=== PATIENT | female | born 1975 | race Two or more races ===

== ENCOUNTER → 2019-03-24 | Outpatient (CLI) | payer BC ==
--- NOTE | 2019-03-24 15:11 | EKG ---
[facility] [address] [place] [address] Test Date: 2019-03-24 Test Time: 15:09:00 Pat Name: LIZANDRO GREENWOOD Department: Room: Gender: F Corporate Claims Examiner: : 1975 Requested By: LAVINIA SHETH Order Number: [id number] Reading MD: Naun Killian Measurements Intervals Drasco Rate: 68 P: 38 IN: 178 QRS: 25 QRSD: 84 T: 17 QT: 364 QTc: 391 Interpretive Statements SINUS RHYTHM Electronically Signed On 03-26-2019 10:16:26 STAFF REGISTERED NURSE by Naun Killian
[2019-03-24 15:17] LABS: BASO % 0 % (0-3); EOS # 0.1 x10^3/uL (0.0-0.7); EOS % 1 % (0-3); LYMPH # 2.9 x10^3/uL (1.0-4.8); LYMPH % 22 % (24-48); MEAN CORPUSCULAR HEMOGLOBIN 23 pg (25-35); MEAN CORPUSCULAR HGB CONC 32 g/dL (31-37); MEAN CORPUSCULAR VOLUME 72 fL (79-100); MONO # 0.5 x10^3/uL (0.0-1.1); MONO % 4 % (0-9); NEUT % 74 % (31-73); PLATELET COUNT 339 x10^3/uL (140-400); RED BLOOD COUNT 4.84 x10^6/uL (3.50-5.40); RED CELL DISTRIBUTION WIDTH 18.5 % (11.5-14.5); WHITE BLOOD COUNT 13.6 x10^3/uL (4.0-11.0)
[2019-03-24 15:50] LABS: ALBUMIN 3.6 g/dL (3.4-5.0); ALBUMIN/GLOBULIN RATIO 0.9 (1.0-1.7); CREATININE 0.6 mg/dL (0.6-1.0); GFR 107.6; POTASSIUM 3.5 mmol/L (3.5-5.1); TOTAL BILIRUBIN 0.2 mg/dL (0.2-1.0); TOTAL PROTEIN 7.7 g/dL (6.4-8.2)
--- NOTE | 2019-03-24 15:58 | RAD ---
EXAM: Chest, 2 views. HISTORY: Hysterectomy. Preoperative evaluation. COMPARISON: None. FINDINGS: 2 views of the chest are obtained. There is no infiltrate, pleural effusion or pneumothorax. The heart is normal in size. IMPRESSION: No acute pulmonary finding. Electronically signed by: Samia Riley MD (03/24/2019 3:55 PM) [facility]
[2019-03-24 15:59] LABS: BILIRUBIN,URINE NEGATIVE (NEG); CLARITY,URINE CLEAR; COLOR,URINE YELLOW; NITRITE,URINE NEGATIVE (NEG); PH,URINE 6.5; PROTEIN,URINE NEGATIVE (NEG-TRACE); UROBILINOGEN,URINE 0.2 mg/dL (0.2 mg/dL)
[2019-03-24 16:08] LABS: SQUAMOUS EPITHELIAL CELL,UR MOD /LPF
[2019-03-24 16:10] LABS: BACTERIA,URINE FEW /HPF (0-FEW)
[2019-03-24 16:36] LABS: PLT ESTIMATE ADEQUATE (ADEQUATE)
[2019-03-24 16:37] LABS: HYPOCHROMIA SLIGHT; MICROCYTOSIS SLIGHT
== END ==
LOC: SURGPAT 14:05
PROVIDERS: ATTEND Obstetrics & Gynecology
DX: Z01.818 Encounter for other preprocedural examination (principal); D64.9 Anemia, unspecified
CPT/HCPCS: 36415; 71046; 80053; 81001; 85025; 93005

== ENCOUNTER 2019-04-01 06:55 | Observation (INO) | payer BC ==
[~2019-04-01] VITALS: Ht 157.5 cm; Wt 90.7 kg
[2019-04-01] VITALS (7 sets, daily range): BP systolic 106–142; BP diastolic 48–79
[2019-04-01] MEDS ORDERED: PROPOFOL 20 ML IV ONE (06:56)
[2019-04-01] MEDS ORDERED: fentaNYL PF VIAL 100 MCG/2 ML VIAL ONE ×2 (06:56→11:06)
[2019-04-01] MEDS ORDERED: MIDAZOLAM HCL/PF 2 MG/2 ML VIAL. ONE (06:56)
[2019-04-01] MEDS ORDERED: LIDOCAINE 2% PF 5 ML VIAL. ONE (06:56)
[2019-04-01] MEDS ORDERED: DEXAMETHASONE SOD PHOS 4 MG/ML VIAL ONE (06:56)
[2019-04-01] MEDS ORDERED: ROCURONIUM 50 MG/5 ML VIAL. ONE (06:56)
[2019-04-01] MEDS ORDERED: ONDANSETRON PF 4 MG/2 ML VIAL. ONE (06:56)
[2019-04-01] MEDS ORDERED: ceFAZolin 2GM PREMIX 2 GM/50 ML BAG IV ONE (07:00)
[2019-04-01] MEDS ORDERED: MORPHINE SULFATE 2 MG/ML VIAL. IV PRN (07:00)
[2019-04-01] MEDS ORDERED: ONDANSETRON PF 4 MG/2 ML VIAL. IV PRN ×2 (07:00→11:45)
[2019-04-01] MEDS ORDERED: PROCHLORPERAZINE 10 MG/2 ML VIAL. IV PRN (07:00)
[2019-04-01] MEDS ORDERED: IV RINGERS,LACTATED 1000ML 1,000 ML IV SCH (07:00)
[2019-04-01] MEDS ORDERED: fentaNYL PF VIAL 100 MCG/2 ML VIAL IV PRN ×2 (07:00)
[2019-04-01] MEDS ORDERED: BUPIVACAINE-EPI 0.25%-1:200000 MPF 30 ML VIAL. INJ ONE (07:45)
[2019-04-01] MEDS ORDERED: ESTROGENS, CONJ VAGINAL CREAM 30GM TUBE. ONE (07:50)
[2019-04-01] MEDS ORDERED: INDIGOTINDISULFONATE SODIUM 40 MG/5 ML AMPUL. ONE (07:50)
[2019-04-01] MEDS ORDERED: FAMOTIDINE 20 MG/2 ML VIAL ONE (08:46)
[2019-04-01] MEDS ORDERED: DESFLURANE > 120 MINUTES IH ONE (10:11)
[2019-04-01] MEDS ORDERED: GLYCOPYRROLATE 1 MG/5 ML VIAL. ONE (10:41)
[2019-04-01] MEDS ORDERED: NEOSTIGMINE METHYLSULFATE 5 MG/5 ML SYRINGE. ONE (10:41)
--- NOTE | 2019-04-01 11:38 | PDOC ---
BRIEF OPERATIVE NOTE Date: Apr 01, 2019 Pre-Op Diagnosis menorrhagia, anemia, dysmenorrhea, enlarged uterus Post-Op Diagnosis same Procedure Performed LAVH/bilateral salpingectomy Surgeon Dr. Mera Franco Psychological Operations Officer Dante Harrison [facility] Anesthesiologist Dr. Quinteros Anesthesia Type: General Blood Loss 500cc IV Fluid 1200cc Urine Output 300cc via burciaga Specimens Obtained cervix, uterus morcellated to get out, and bilateral tubes Findings very enlarged RV uterus, functional left ovarian cyst popped with manipulatin of it, normal bilateral tubes, no significant adhesive disease Complications none Operative Note [id number] MERA FRANCO MD Apr 01, 2019 11:38
[2019-04-01] MEDS ORDERED: MAGNESIUM HYDROXIDE 2,400 MG/30 ML ORAL.SUSP. PO PRN (11:45)
[2019-04-01] MEDS ORDERED: NALOXONE 0.4 MG/ML VIAL. IV PRN (11:45)
[2019-04-01] MEDS ORDERED: SIMETHICONE 80 MG TAB.CHEW PO PRN (11:45)
[2019-04-01] MEDS ORDERED: LACTULOSE 20 GM/30 ML SOLUTION. PO PRN (11:45)
[2019-04-01] MEDS ORDERED: oxyCODONE/APAP 5/325 1 TAB TABLET PO PRN (11:45)
[2019-04-01] MEDS ORDERED: diphenhydrAMINE 50 MG/ML VIAL IV PRN (11:45)
[2019-04-01] MEDS ORDERED: diphenhydrAMINE HCL 25 MG CAPSULE PO PRN (11:45)
[2019-04-01] MEDS ORDERED: 0.9 % SODIUM CHLORIDE 10 ML DISP.SYRIN. IV PRN (11:45)
[2019-04-01] MEDS ORDERED: CALCIUM CARBONATE 500 MG TAB.CHEW PO PRN (11:45)
[2019-04-01] MEDS ORDERED: ZOLPIDEM 5 MG TABLET. PO PRN (11:45)
[2019-04-01] MEDS ORDERED: MAG HYDROX/ALUMINUM HYD/SIMETH 30 ML ORAL.SUSP PO PRN (11:45)
[2019-04-01] MEDS: MORPHINE SULFATE 2 MG/ML VIAL. IV PRN ×2 (11:56→19:56)
[2019-04-01] MEDS: HYDROmorphone 2 MG/ML VIAL IV PRN ×2 (12:13→12:19)
[2019-04-01] MEDS: HYDROcodone/APAP 5/325MG 1 TAB TABLET PO PRN ×2 (16:56→21:02)
--- NOTE | 2019-04-01 21:30 | NUR ---
Came into patient room after emergency call light was going off. Pt. was up walking to the bathroom with her . Pt. was hyperventilating and stated that she was in pain. This nurse and labor nurses helped pt. back to bed at this time. Pulse Ox applied and pulse rate was in the 140s, O2 sats were WNL. Nursery nurse who speaks Kuwaiti was called and came into room and talked to patient and encouraged patient to breathe and to relax. Pt. RR went down and pulse came down to the 90s within the next few minutes. Pt. c/o to the nursery nurse that she had pain on her left side, but that the ice helped. Told pt. to call when she wanted to try and get up to the bathroom next. Dr. Franco was called at 2150 and told about patient condition, orders received that pt. can have a one time dose of Ativan or Benadryl as needed to help her sleep. Pt. updated with plan from Dr. Franco.
--- NOTE | 2019-04-01 21:47 | OP ---
DATE OF SURGERY: 04/01/2019 PREOPERATIVE DIAGNOSES: Menorrhagia, dysmenorrhea, anemia, enlarged uterus. POSTOPERATIVE DIAGNOSES: Menorrhagia, dysmenorrhea, anemia, enlarged uterus. PROCEDURE: Laparoscopic-assisted vaginal hysterectomy, bilateral salpingectomy. SURGEON: Lavinia Franco MD ASSOCIATE PROFESSOR COMPUTER SCIENCE: Dante Harrison, rina FA. ANESTHESIOLOGIST: Gildardo Quinteros MD ANESTHESIA: General. ESTIMATED BLOOD LOSS: 500 mL. URINE OUTPUT: 300 mL clear during the case via Talavera catheter. INTRAVENOUS FLUIDS: 1200 mL of Crystalloid. SPECIMENS: Cervix, the uterus was morcellated in pieces to get it out and bilateral tubes. FINDINGS: A very enlarged retroverted uterus, a functional left ovarian cyst that was popped with manipulation of it. Normal bilateral tubes. No significant adhesive disease. Normal appearing appendix was visualized as well. COMPLICATIONS: None. DESCRIPTION OF PROCEDURE: This patient was taken to the operating room where general anesthesia was placed. The patient was placed in dorsal lithotomy position in Greg stirrups. The patient's abdomen and vagina were both prepped and draped in the normal sterile fashion and a Talavera catheter had been inserted under sterile technique. Upon my arrival, a timeout was performed where it was assured, she got her antibiotics and everyone agreed on the patient. A bivalve speculum was then placed in the patient's vagina. Single-tooth tenaculum was used to grasp the anterior lip of the cervix. A 10 mL of 0.25% Marcaine with epinephrine was used to circumferentially inject around the cervix for both hemodissection and hemostatic purposes later. The Valtchev uterine manipulator was placed through the endocervical os, locked on the single tooth tenaculum and the bivalve speculum was then removed. Top gloves were discarded and changed. At this point, a supraumbilical skin incision was made. I went a couple of centimeters above the umbilicus as she had a uterus that was midway between the pubic bone and the umbilicus, and I wanted to have adequate visualization with the scope around it. So, I went a couple above, injected, made a small incision, used a Joyce to dissect through the subcuticular layer to the fascia. The 5 mm Visiport was used to directly enter the abdominal cavity. Opening patient pressure was 3-4 mmHg. Carbon dioxide gas was used to then appropriately insufflate the abdominal cavity to maintain a pressure of 15 mmHg. The patient was placed in Trendelenburg position. At this point, right and left lower quadrant ports were done. First transilluminating the abdominal wall, finding an area clear of any vasculature, injecting it, making an incision and placing the trocar in under direct visualization. This was done on both sides. Also, both trocars were filled with 4-5 mL of air in the trocar balloon cuff. At this point, the camera was moved laterally to look at the umbilical port. It was clear and 4-5 mL of air was placed in it as well. At this point, the camera was moved back to the midline and the procedure was begun. First elevating the left tube and ovary, there was a small functional cyst on the left that popped with manipulation of the ovary, elevating the tube, doing a salpingectomy, crossing the left uterine ovarian pedicle and then the left round ligament, cauterizing and cutting with the LigaSure the whole way through. This was done exactly the same on the right, elevating the right tube and ovary, going above the ovary, below the tube, doing a salpingectomy, crossing the right uterine ovarian pedicle as well as the right round ligament. At this point, the bladder flap was created sharply, elevating it anteriorly and using the monopolar hook to incise it and pushing the uterus cephalad and then pulling gentle traction down and making that bladder flap and pulling it down. The uterine vessels were obtained then on both sides and on the patient's left side, crossing contralaterally, hugging the cervix, staying vertical right on the uterus and cervix, going down to the uterosacral and then staying inside that pedicle on the right side where the uterine vessels were obtained going down correction down the cervix as well. The uterus was completely free and blanched at this point, although it was very large and difficult to manipulate, but everything was free and there was no active bleeding at this point. All instruments were removed from the abdomen and attention was turned vaginally. At this point, the single tooth and Valtchev were removed. A weighted speculum was placed in the patient's vagina. A scalpel was used to make a circumferential incision. This was very difficult as she had a very large cervix. It took up 3/4 of the vagina itself, so moving it around to manipulate it to see the cut and being very careful not to cut vagina. Then, the posterior cul-de-sac was actually easier entered, which could be seen bulging. The curved Dorsey's were used to enter the posterior cul-de-sac sharply and a #0 Vicryl stitch was used to secure the posterior peritoneum to the vaginal cuff. It was tagged with a curved Joyce clamp and the needle was cut and passed off. The short weighted vaginal speculum was removed and replaced with the long Ron speculum in the posterior cul-de-sac. At this point, attention was turned to work on the bladder. I could get in on that left side where we got down lower and I could go up on that left side, very easily and then I had to take it around anteriorly from there and make sure I was in and then cut on the right side that was more difficult to see with her cervix. Once I knew I was in and pushed it up and make sure the bladder was completely up and that we were in that anterior cul-de-sac and putting a Suleiman in there, but once I knew the left side was giving and I was in the right plane, I used a Ray-Steffi to push up on that side, entered on this side and then I was able to use digitally bluntly get my finger in and around, and make that bladder flap and put the Dacono in. Once this was done, I was able to take a curved Heaneys x 2 on the patient's left uterosacral ligament where they were doubly clamped with curved Heaneys, cut with curved Dorsey scissors and suture ligated x 2 with 0 Vicryl. Second one was taken through the vaginal cuff, securing uterosacral ligament to the vaginal cuff. Then, on the right side, I did the same thing after making sure the bladder was up, taking it up, working on it. It just took some time to get there. She had more thicker tissue on that right side and the cervix was made it difficult to see, but once we got the bladder up and I could take bite with the curved Inocente's, everything kind of released and I was able to continue. I went back to the patient's left side, I was able to put a mixture around the remaining pedicle and the vaginal LigaSure was used to cauterize and cut the remaining pedicle. I was able to get my finger up and around and the entire left side was free at this point. I did take the mixture around the remaining pedicle on the right side. It was a larger pedicle, but I was able to get it around and hold it there and opened it up while I used the vaginal LigaSure to cauterize and cut the remaining pedicle on the right side as well. Once this was done, the uterus was free and it did start to give a little bit more vaginally. I then had them check the urine. We had over 200 mL, clear via Talavera catheter. I just wanted to make sure because pulling down the large uterus and manipulating it sometimes causes a little bit of pressure on the bladder and a tiny bit of blood. So, I wanted to make sure we were completely clear after all the cutting and manipulation of the uterus and cervix. So, at this point morcellation was begun. A scalpel was used to make incision up higher than the cervix and it kind of curve in. I was able to place the double tooth tenaculum on the remaining and start to cut on it as well and turned the uterus and get one of the cornua out. Once I was able to cut there, the rest remained or caved and it delivered. It was a very, very large and wide and bulbous fundus with both tubes attached that was delivered. Once this was done, the anterior bladder peritoneum was grasped with a long Allis. Sponge stick was used to examine the pedicles. The right pedicle had fallen off during the manipulation and pulling it out. Also, the posterior peritoneum pushed up and was bleeding, so I did put a few interrupted sutures pulling that back down to the vaginal cuff and making sure there was no bleeding. She had a tiny pumper on the left vaginal cuff that was a burlisher clamp that and I was able to put a 2-0 Vicryl suture around it with excellent results. Once hemostasis was assured vaginally, a full length 2-0 Vicryl was used to take it through the anterior bladder peritoneum, left uterosacral ligament, posterior peritoneum and right uterosacral ligament, thus closing the peritoneum in a pursestring like fashion. While we were closing the cuff, all sponge, lap and needle counts were correct x 2 by OR personnel. The cuff was closed in an anterior to posterior running locked fashion with a full length 2-0 Vicryl and it could even make it all the way down. So I took a second one, tied it to that and then finished it and tied it to that posterior cuff tag. I put an interrupted stitch in the middle just for hemostasis and making sure that it had good strength and integrity. Once did and that was assured, all instruments were removed from the vagina and like I said, have been corrected by OR personnel and counted x 2. Sponge stick was used to examine the vaginal cuff and it was hemostatic, so everything was removed. All gloves were discarded and changed for a second look from above. The patient was placed back in Trendelenburg. Gas was reinsufflated. Any clots were cleared from the cul-de-sac, but there was no active bleeding. Copious irrigation revealed hemostasis. The Tisseel did not pumped right, it just kind of blurred out on the left side. For some reason, it did not spray like it should have. So, I just got Alejandra and placed it all over the cuff and both pedicles. The ovaries looked good, the vaginal cuff looked good. I placed the Alejandra. It stayed white and powdery with no bleeding whatsoever at all. The right and left pericolic gutters were clear, everything looked good. Again, the visualization of the appendix and the liver edge were normal. Once this was all done, the gas was released from the right and left lower quadrant ports. These were removed under direct visualization. The cuff remained hemostatic as I looked at it again and the air was removed from the trocar and the umbilical port. Then, gas was released from this and then it was removed as well. All 3 port sites were closed with 4-0 nylon at the skin and the patient was awakened from anesthesia and is currently being brought to recovery room in stable condition. LAVINIA FRANCO MD DR: NATA/lucy JOB#: [id number] / [id number]
[2019-04-02 00:55] VITALS: BP 114/50
[2019-04-02 04:20] VITALS: BP 111/64
[2019-04-02 06:42] LABS: CREATININE 0.6 mg/dL (0.6-1.0); GFR 107.6; POTASSIUM 4.3 mmol/L (3.5-5.1)
--- NOTE | 2019-04-02 08:44 | PDOC ---
SURGICAL PROGRESS NOTE Subjective Doing well without complaints. Scant VB. Pain mild, ambulating well. Tolerating PO without problems. Voiding without catheter. Vital Signs Vital Signs Date Time Temp Pulse Resp B/P (MAP) Pulse Ox O2 Delivery O2 Flow Rate FiO2 04/02/19 08:10 Room Air 04/02/19 04:20 98.2 80 18 111/64 (80) 98 98.2 04/01/19 15:20 95.0 I&O Intake and Output 04/02/19 07:00 Intake Total 2510 ml Output Total 1204 ml Balance 1306 ml Intake Oral 1160 ml IV Total 1350 ml Output Urine Total 700 ml Stool Total 4 ml Estimated Blood Loss 500 ml PATIENT HAS A MAY: No General: Alert, Oriented X3, Cooperative, No acute distress HEENT: Atraumatic Heart: Regular rate Abdomen: Soft, No tenderness, No masses, Other (all port sites c/d/i) Extremities: No clubbing, No cyanosis, No edema, No tenderness/swelling Skin: No rashes, No breakdown Neuro: Normal speech Psych/Mental Status: Mental status NL, Mood NL Labs Laboratory Tests Test 04/01/19 07:14 04/01/19 18:20 04/02/19 04:16 Bedside Urine HCG, Qualitative Hcg negative (Negative) Hemoglobin 9.4 g/dL (12.0-15.5) Hematocrit 26.0 % (36.0-47.0) Sodium Level 140 mmol/L (136-145) Potassium Level 4.3 mmol/L (3.5-5.1) Chloride Level 105 mmol/L (98-107) Carbon Dioxide Level 25 mmol/L (21-32) Anion Gap 10 (6-14) Blood Urea Nitrogen 10 mg/dL (7-20) Creatinine 0.6 mg/dL (0.6-1.0) Estimated GFR (Cockcroft-Gault) 107.6 Glucose Level 103 mg/dL (70-99) Calcium Level 8.0 mg/dL (8.5-10.1) Laboratory Tests Test 04/01/19 18:20 04/02/19 04:16 Hemoglobin 9.4 g/dL (12.0-15.5) Hematocrit 26.0 % (36.0-47.0) Sodium Level 140 mmol/L (136-145) Potassium Level 4.3 mmol/L (3.5-5.1) Chloride Level 105 mmol/L (98-107) Carbon Dioxide Level 25 mmol/L (21-32) Anion Gap 10 (6-14) Blood Urea Nitrogen 10 mg/dL (7-20) Creatinine 0.6 mg/dL (0.6-1.0) Estimated GFR (Cockcroft-Gault) 107.6 Glucose Level 103 mg/dL (70-99) Calcium Level 8.0 mg/dL (8.5-10.1) I have reviewed the following labs, vitals, nursing Cardiovascular: No pertinent hx GI: No pertinent hx Heme/Onc: Anemia NOS Psych: No pertinent hx Problem List anemia, enlarged uterus, menorrhagia Assessment/Plan POD#1 s/p LAVH/bilateral salpingectomy routine po care d/c to home later today NPV x 6 weeks light/limited activity x [address] while on narcotic pain meds already has hydrocodone script at home filled anemia--iron bid keep scheduled follow up with me in the office in one week call or return sooner for any other questions or concerns not limited to but inc luding pain unrelieved with pain meds, increased or unexplained vaginal bleeding or T>100.4 LAVINIA SHETH MD Apr 02, 2019 08:44
--- NOTE | 2019-04-02 08:51 | PDOC3 ---
Discharge Summary Visit Information Date of Admission: Apr 01, 2019 Date of Discharge: Apr 02, 2019 Final Diagnosis anemia, enlarged uterus, menorrhagia Brief Hospital Course Allergies Allergies Coded Allergies Type Severity Reaction Last Updated Verified No Known Drug Allergies 03/24/19 No Vital Signs Vital Signs Date Time Temp Pulse Resp B/P (MAP) Pulse Ox O2 Delivery O2 Flow Rate FiO2 04/02/19 08:10 Room Air 04/02/19 04:20 98.2 80 18 111/64 (80) 98 98.2 04/01/19 15:20 95.0 Lab Results Laboratory Tests Test 04/01/19 07:14 04/01/19 18:20 04/02/19 04:16 Bedside Urine HCG, Qualitative Hcg negative (Negative) Hemoglobin 9.4 g/dL (12.0-15.5) Hematocrit 26.0 % (36.0-47.0) Sodium Level 140 mmol/L (136-145) Potassium Level 4.3 mmol/L (3.5-5.1) Chloride Level 105 mmol/L (98-107) Carbon Dioxide Level 25 mmol/L (21-32) Anion Gap 10 (6-14) Blood Urea Nitrogen 10 mg/dL (7-20) Creatinine 0.6 mg/dL (0.6-1.0) Estimated GFR (Cockcroft-Gault) 107.6 Glucose Level 103 mg/dL (70-99) Calcium Level 8.0 mg/dL (8.5-10.1) Laboratory Tests Test 04/01/19 18:20 04/02/19 04:16 Hemoglobin 9.4 g/dL (12.0-15.5) Hematocrit 26.0 % (36.0-47.0) Sodium Level 140 mmol/L (136-145) Potassium Level 4.3 mmol/L (3.5-5.1) Chloride Level 105 mmol/L (98-107) Carbon Dioxide Level 25 mmol/L (21-32) Anion Gap 10 (6-14) Blood Urea Nitrogen 10 mg/dL (7-20) Creatinine 0.6 mg/dL (0.6-1.0) Estimated GFR (Cockcroft-Gault) 107.6 Glucose Level 103 mg/dL (70-99) Calcium Level 8.0 mg/dL (8.5-10.1) Brief Hospital Course Ms. Orozco is a 44 old female who presented with menorrhagia and enlarged uterus. She underwent an LAVH/bilateral salpingectomy. She has had an unremarkable postoperative course. She is voiding without catheter, tolerating PO, ambulating well. She is anemic, but came in anemic but started that way and is stable postoperatively. Assessment Assessment POD#1 s/p LAVH/bilateral salpingectomy routine po care d/c to home later today NPV x 6 weeks light/limited activity x [address] while on narcotic pain meds already has hydrocodone script at home filled anemia--iron bid keep scheduled follow up with me in the office in one week call or return sooner for any other questions or concerns not limited to but including pain unrelieved with pain meds, increased or unexplained vaginal bleeding or T>100.4 Discharge Information Condition at Discharge: Stable Follow Up: Weeks Disposition/Orders: D/C to Home Scheduled Info (No Known Medications Prior To Admisstion) Each, 1 EACH 1X for NONE, (Reported) Entered as Reported by: GUERA ANDRADE on 03/24/19 0066 Patient Instructions Patient Instructions POD#1 s/p LAVH/bilateral salpingectomy routine po care d/c to home later today NPV x 6 weeks light/limited activity x [address] while on narcotic pain meds already has hydrocodone script at home filled anemia--iron bid keep scheduled follow up with me in the office in one week call or return sooner for any other questions or concerns not limited to but including pain unrelieved with pain meds, increased or unexplained vaginal bleeding or T>100.4 Hemodynamically unstable?: No Operative site or wounds?: Yes Poss blood loss?: Yes Persistent Pain & Nausea?: No Poss Infection?: No LAVINIA SHETH MD Apr 02, 2019 08:51
[2019-04-02] MEDS ORDERED: IBUPROFEN 200 MG TABLET. PO PRN (09:00)
[2019-04-02] MEDS ORDERED: INFLUENZA VAX SCREEN BY RX. MC PRN (09:30)
[2019-04-02] MEDS ORDERED: FLU VAX QS 2019-20 (36MOS+)/PF 0.5 ML SYRINGE. VAX IM ONE (10:00)
[2019-04-02 11:57] VITALS: BP 125/69
--- NOTE | 2019-04-02 12:15 | NUR ---
Discharge and follow up instructions reviewed and given to pt. Pt and family denied any questions prior to D/C. Pt taken out of the hospital per w/c and helped into the car with her family.
--- NOTE | 2019-04-06 10:07 | PATHOLOGY ---
[facility] Accession Number: [id number] . 01 Material submitted: . uterus - UTERUS, CERVIX, BILATERAL FALLOPIAN TUBES . 01 Clinical history: . Menorrhagia, dysmenorrhea . 02 Diagnosis: Uterus and bilateral fallopian tubes, laparoscopic assisted vaginal hysterectomy with bilateral salpingectomy: - Adenomyosis, uterine corpus, with myometrial hypertrophy (uterine weight 411 grams). - Mild chronic cervicitis with focal squamous metaplasia and hypercornification. - Proliferative endometrium with focal recent stromal hemorrhage. - Status post bilateral tubal ligation with mild hydrosalpinx proximal to ligation. - Paratubal cyst, side indeterminate. (JPM:jocy; 04/05/2019) S 04/05/2019 1501 Local . 02 Comment: There is no atypia or evidence of malignancy. . 02 Electronically signed: . Marco Antonio Brady MD, Pathologist NPI- [id number] . 01 Gross description: . The specimen is received in formalin, labeled "Orozco, Kassidy, uterus cervix bilateral fallopian tubes" and consists of a uterine corpus and the separately received lower uterine segment with attached cervix weighing 411 g and measuring 16.0 x 10.8 x 7.5 cm. Attached are 2 purple mendoza fimbriated fallopian tubes which are unable to be oriented measuring 6.4 cm in length and up to 0.9 cm in diameter and 8.0 cm in length and up to 1.0 cm in diameter. Both tubes are status post tubal ligation. The uterine serosa is pink-mas smooth shiny with focal hemorrhage. The approximate 2.5 cm cervical os is surrounded by ragged pink-mas mucosa. The lower uterine segment with cervix is opened revealing a pink-mas corrugated endocervical canal measuring 7.0 cm in length and a short segment of lower endometrial cavity measuring 2.6 cm in length and 2.0 cm in width. The uterine fundus is bivalved revealing a partial endometrial cavity measuring 4.3 cm in length and 4.5 cm in width which is lined by a dark purple red to pink endometrium measuring up to 0.4 cm. The myometrium is pink-mas measuring up to 4.2 cm with adenomyosis and no nodules. . Both the right and left fimbriated fallopian tubes are pink-purple and congested with a dilated lumen proximal the tubal ligation and a well-defined pinpoint lumen distal the ligation. Both tubes have paratubal cysts measuring up to 0.9 cm. Window Systems Administrator sections are submitted as follows: . A1: Anterior cervix A2: Posterior cervix A3-A4: Opposing endomyometrium A5: One fallopian tube A6: One fallopian tube (SDY; 04/02/2019) SYU/SYU 04/02/2019 1249 Local . 02 Pathologist provided ICD-10: N80.0, N72, N83.8 . 02 CPT . 848558 Specimen Comment: A courtesy copy of this report has been sent to [phone] Specimen Comment: Report sent to Performed at: 01 [facility] [address], [place], [place] [id number] MD Bjorn Harding MD Phone: [phone] Performed at: 02 [facility] [address], [place] [id number] MD Marco Antonio Brady MD Phone: [phone]
== END 2019-04-02 12:15 | disposition home or self-care (01) ==
LOC: SURG 06:55 → 3 NORTH 11:48
PROVIDERS: ADMIT Obstetrics & Gynecology; ATTEND Obstetrics & Gynecology
DX: N92.0 Excessive and frequent menstruation with regular cycle (principal); N94.6 Dysmenorrhea, unspecified; D64.9 Anemia, unspecified; N85.2 Hypertrophy of uterus; Z23 Encounter for immunization
CPT/HCPCS: 36415; 58554; 80048; 81025; 85014; 85018; 86850; 86900; 86901; 88307; 90471; 90686; 96374; A7015; G0378; G0379; J0696; J1100; J1170; J2001; J2250; J2270; J2405; J2704; J2710; J3010; J3490; J7030